=== PATIENT | female | born 1940 | race Caucasian/White ===

== ENCOUNTER → 2019-01-16 | Outpatient (CLI) | payer MEDICARE | END | disposition home or self-care (01) | LOC: RADPETMAIN 10:34 | PROVIDERS: ATTEND Family Medicine | DX: Z53.9 Procedure and treatment not carried out, unspecified reason (principal) ==

== ENCOUNTER → 2019-02-13 | Outpatient (CLI) | payer MEDICARE ==
--- NOTE | 2019-02-15 07:47 | PE ---
EXAMINATION TYPE: PET CT fusion skull to thigh DATE OF EXAM: 02/13/2019 COMPARISON: Outside chest CT December 17, 2018. HISTORY: Solitary pulmonary nodule. TECHNIQUE: Following the intravenous administration of 13.30 mCi of F-18 FDG, whole body images are performed from the skull base to the midthigh. Images are reviewed on the computer in the coronal, a xial, and sagittal planes. Reconstructed rotating images are created on independent workstation and reviewed on the computer. A noncontrast CT is performed in conjunction with the PET scan. SCAN: Initial Scan FINDINGS: SKULL BASE AND NECK: No areas of suspicious hypermetabolic uptake. CHEST, MEDIASTINUM, AND HILAR REGION: Background mild underlying emphysematous change is redemonstrat ed. There is marked interval improvement in masslike consolidation left lung base on axial image 125. There is minimal residual ametabolic linear consolidation remaining present measuring roughly 3.0 x 0.4 cm consistent with resolving infiltrate and/or atelectasis. No suspicious areas of abnormal hyper metabolic uptake in the thorax are present. ABDOMEN AND PELVIS: No areas of suspicious hypermetabolic uptake. OSSEOUS STRUCTURES: No areas of suspicious hypermetabolic uptake. OTHER CT: There is moderate to severe three-vessel coronary artery calcification which is noted marke d underlying coronary artery disease. Moderate to severe calcified plaque bilateral carotid bulb leve l is noted. Some cortical thinning of both kidneys with a few scattered simple appearing cysts are present. Findi ngs are consistent with product of chronic medical renal disease. There is moderate to severe calcified plaque of the abdominal aorta extending into iliac branch vesse ls. Uterus is surgically absent markedly atrophic. Scattered pelvic phleboliths are present. There is facet arthropathy in the lower lumbar spine. Multilevel spurring in the thoracolumbar spine. IMPRESSION: No suspicious hypermetabolic uptake to suggest malignancy. Near-complete resolution of po sterior left basilar consolidation and/or atelectasis.
== END | disposition home or self-care (01) ==
LOC: RADPETMAIN 11:54
PROVIDERS: ATTEND Family Medicine
DX: R91.8 Other nonspecific abnormal finding of lung field (principal)
CPT/HCPCS: 78815; A9552

== ENCOUNTER → 2023-02-06 | Outpatient (CLI) | payer MEDICARE ==
--- NOTE | 2023-02-06 17:00 | CT ---
EXAMINATION TYPE: CT chest wo con DATE OF EXAM: 02/06/2023 COMPARISON: Head CT 12/27/2018 HISTORY: SOB/Cough. CT DLP: [address] of the chest was performed with lung and mediastinal window settings submitted. The la ck of contrast limits evaluation of the vascular, mediastinal and parenchymal structures including th e upper abdomen. LUNGS: Left basilar density seen on prior study has resolved. The lungs are clear and free of infiltr ate. No atelectasis. No pulmonary nodule or mass is detected. No pleural effusion. No CT evidence of interstitial lung disease. MEDIASTINUM/CHANDLER: Thoracic aorta is of normal caliber with limited evaluation given lack of contrast . The heart is not enlarged. No evidence for mediastinal mass. No lymph nodes greater than 1cm. UPPER ABDOMEN: No significant abnormality is seen. OTHER: No significant other abnormality. IMPRESSION: 1.
== END | disposition home or self-care (01) ==
LOC: RADCTMAIN 16:02
PROVIDERS: ATTEND Family Medicine
DX: R06.02 Shortness of breath (principal); R05.9 Cough, unspecified
CPT/HCPCS: 71250

== ENCOUNTER 2025-04-28 18:37 | Emergency (ER) | payer MEDICARE ==
[2025-04-28 18:46] VITALS: RESP 18; TEMP 98
[2025-04-28] MEDS: SODIUM CHLORIDE 0.9% 1,000 ML IV ONE (19:03)
[2025-04-28 19:05] LABS: Basophils # (A) 0.02 10*3/uL (0.00-0.10); Basophils % (A) 0.2 %; Eosinophils # (A) 0.00 10*3/uL (0.04-0.35); Eosinophils % (A) 0.0 %; HCT 36.7 % (37.2-46.3); HGB 12.5 g/dL (12.0-15.0); Lymphocytes # (A) 0.61 10*3/uL (0.90-5.00); Lymphocytes % (A) 6.6 %; MCH 31.0 pg (27.0-32.0); MCHC 34.1 g/dL (32.0-37.0); MCV 91.1 fL (80.0-97.0); Monocytes # (A) 0.72 10*3/uL (0.20-1.00); Monocytes % (A) 7.8 %; Neutrophils # (A) 7.80 10*3/uL (1.80-7.70); Neutrophils % (A) 85.1 %; Platelet Count 234 10*3/uL (140-440); RBC 4.03 10*6/uL (4.10-5.20); RDW 14.6 % (11.5-14.5); WBC 9.18 10*3/uL (4.50-10.00)
--- NOTE | 2025-04-28 19:15 | ED ---
General Adult HPI - General Chief complaint: Fall Stated complaint: Fall Time Seen by Provider: 04/28/25 18:45 Source: patient, RN notes reviewed, old records reviewed Mode of arrival: EMS Limitations: no limitations - History of Present Illness Initial comments: This is an 84-year-old female who was using her walker on wheels to get a package she states she had a package on the cart portion when she lost her balance fell backwards onto her but was unable to get up. Patient states this happened about 20 hours ago. Patient denies hitting her head or neck. Patient denies a headache Patient denies numbness weakness patient denies any neck pain or scalp pain. Patient denies any back chest or abdomen pain. Patient denies any extremity pain. Patient has no complaints whatsoever she states the only reason she came in is because her kids wanted her to. - Related Data Home Medications Medication Instructions Recorded Confirmed Clopidogrel [Plavix] 75 mg PO DAILY 04/28/25 04/28/25 FLUoxetine HCL [PROzac] 20 mg PO DAILY 04/28/25 04/28/25 Furosemide [Lasix] 20 mg PO DAILY 04/28/25 04/28/25 Levothyroxine Sodium [Synthroid] 112 mcg PO DAILY 04/28/25 04/28/25 Losartan [Cozaar] 25 mg PO DAILY 04/28/25 04/28/25 Metoprolol Tartrate [Lopressor] 25 mg PO DAILY 04/28/25 04/28/25 Tirzepatide [Mounjaro] 5 mg SQ WE 04/28/25 04/28/25 diphenhydrAMINE [Benadryl] 25 mg PO QID PRN 04/28/25 04/28/25 metFORMIN HCL [Glucophage] 500 mg PO BID 04/28/25 04/28/25 Allergies Allergy/AdvReac Type Severity Reaction Status Date / Time No Known Allergies Allergy Verified 04/28/25 19:40 Review of Systems ROS Statement: Those systems with pertinent positive or pertinent negative responses have been documented in the HPI. ROS Other: All systems not noted in ROS Statement are negative. Past Medical History Past Medical History: Diabetes Mellitus, Hypertension, Pneumonia, Thyroid Disorder Additional Past Medical History / Comment(s): "bad veins in legs" Past Surgical History: Appendectomy, Hysterectomy Past Psychological History: No Psychological Hx Reported Smoking Status: Current every day smoker Past Alcohol Use History: None Reported Past Drug Use History: None Reported General Exam - General Exam Comments Initial Comments: GENERAL: Patient is well-developed and well-nourished. Patient is nontoxic and well- hydrated and is in no acute distress. ENT: Neck is soft and supple. No significant lymphadenopathy is noted. Oropharynx is clear. Moist mucous membranes. Neck has full range of motion without eliciting any pain. EYES: The sclera were anicteric and conjunctiva were pink and moist. Extraocular movements were intact and pupils were equal round and reactive to light. Eyelids were unremarkable. PULMONARY: Unlabored respirations. Good breath sounds bilaterally. No audible rales rhonchi or wheezing was noted. CARDIOVASCULAR: There is a regular rate and rhythm without any murmurs gallops or rubs. ABDOMEN: Soft and nontender with normal bowel sounds. SKIN: Skin is clear with no lesions or rashes and otherwise unremarkable. NEUROLOGIC: Patient is alert and oriented x3. Cranial nerves II through XII are grossly intact. Motor and sensory are also intact. Normal speech, volume and content. Symmetrical smile. MUSCULOSKELETAL: Normal extremities with adequate strength and full range of motion. LYMPHATICS: No significant lymphadenopathy is noted PSYCHIATRIC: Normal psychiatric evaluation. Limitations: no limitations Course Vital Signs 04/28/25 18:39 Temperature 98.0 F Pulse Rate 108 H Respiratory 18 Rate Blood Pressure 131/45 O2 Sat by Pulse 92 L Oximetry Medical Decision Making - Medical Decision Making Was pt. sent in by a medical professional or institution (DELMIS Mitchell, LICENSED OCCUPATIONAL THERAPY ASSISTANT, urgent care, hospital, or half-way...) When possible be specific @ -No Did you speak to anyone other than the patient for history (EMS, parent, family, police, friend...)? What history was obtained from this source @ -No Did you review nursing and triage notes (agree or disagree)? Why? @ -I reviewed and agree with nursing and triage notes Were old charts reviewed (outside hosp., previous admission, EMS record, old EKG, old radiological studies, urgent care reports/EKG's, half-way records)? Report findings @ -No old charts were reviewed Differential Diagnosis? @ -Differential Musculoskeletal Muscular strain, contusion, ligament sprain, fracture, arthritis, septic arthritis, bursitis, cellulitis, muscle spasm, nerve compression, DVT, arterial occlusion, herpes zoster, electrolyte abnormality, tumor.... This is not meant to be in all inclusive list EKG interpreted by me (3pts min.). @ -As above X-rays interpreted by me (1pt min.). @ -None done CT interpreted by me (1pt min.). @ -None done U/S interpreted by me (1pt. min.). @ -None done What testing was considered but not performed or refused? (CT, X-rays, U/S, labs)? Why? @ -None What meds were considered but not given or refused? Why? @ -None Did you discuss the management of the patient with other professionals (professionals i.e. Dr., PA, LICENSED OCCUPATIONAL THERAPY ASSISTANT, lab, RT, psych nurse, social media content specialist, bulk materials handling plant operator, teacher, anti air warfare operations officer, major case detective)? Give summary @ -No Was smoking cessation discussed for >3mins.? @ -No Was critical care preformed (if so, how long)? @ -No Were there social determinants of health that impacted care today? How? (Homelessness, low income, unemployed, alcoholism, drug addiction, transportation, low edu. Level, literacy, decrease access to med. care, senior living, rehab)? @ -No Was there de-escalation of care discussed even if they declined (Discuss DNR or withdrawal of care, Hospice)? DNR status @ -No What co-morbidities impacted this encounter? (DM, HTN, Smoking, COPD, CAD, Ca ncer, CVA, ARF, Chemo, Hep., AIDS, mental health diagnosis, sleep apnea, morbid obesity)? @ -None Was patient admitted / discharged? Hospital course, mention meds given and route, prescriptions, significant lab abnormalities, going to OR and other pertinent info. @ -Patient's lab work indicated that she was somewhat dehydrated. Patient received a liter of normal saline in the emergency department. Patient remained asymptomatic throughout her stay. Patient's magnesium came back 1.5 to give the patient a tablet of magnesium oxide of 400 mg. Undiagnosed new problem with uncertain prognosis? @ -No Drug Therapy requiring intensive monitoring for toxicity (Heparin, Nitro, Insulin, Cardizem)? @ -No Were any procedures done? @ -No Diagnosis/symptom? @ -Fall Acute, or Chronic, or Acute on Chronic? @ -Acute Uncomplicated (without systemic symptoms) or Complicated (systemic symptoms)? @ -Uncomplicated Side effects of treatment? @ -No Exacerbation, Progression, or Severe Exacerbation? @ -No Poses a threat to life or bodily function? How? (Chest pain, [place], MA, pneumonia, PE, COPD, DKA, ARF, appy, cholecystitis, CVA, Diverticulitis, Homicidal, Suicidal, threat to staff... and all critical care pts) @ -No Diagnosis/symptom? @ -Hypomagnesemia Acute, or Chronic, or Acute on Chronic? @ -Acute Uncomplicated (without systemic symptoms) or Complicated (systemic symptoms)? @ -Uncomplicated Side effects of treatment? @ -None Exacerbation, Progression, or Severe Exacerbation] @ -No Poses a threat to life or bodily function? @ -No Diagnosis/symptom? @ -Dehydration Acute, or Chronic, or Acute on Chronic? @ -Acute Uncomplicated (without systemic symptoms) or Complicated (systemic symptoms)? @ -On comp Side effects of treatment? @ -None Exacerbation, Progression, or Severe Exacerbation] @ -No Poses a threat to life or bodily function? @ -No - Lab Data Result diagrams: 04/28/25 18:59 04/28/25 18:59 Lab Results 04/28/25 04/28/25 Range/Units 18:59 18:59 WBC 9.18 (4.50-10.00) 10*3/uL RBC 4.03 L (4.10-5.20) 10*6/uL Hgb 12.5 (12.0-15.0) g/dL Hct 36.7 L (37.2-46.3) % MCV 91.1 (80.0-97.0) fL MCH 31.0 (27.0-32.0) pg MCHC 34.1 (32.0-37.0) g/dL Plt Count 234 (140-440) 10*3/uL MPV 9.8 (9.5-12.2) fL Immature Gran % (Auto) 0.3 % Neutrophils % 85.1 % Lymphocytes % 6.6 % Monocytes % 7.8 % Eosinophils % 0.0 % Basophils % 0.2 % Immature Gran # 0.03 (0.00-0.04) 10*3/uL Neutrophils # 7.80 H (1.80-7.70) 10*3/uL Lymphocytes # 0.61 L (0.90-5.00) 10*3/uL Monocytes # 0.72 (0.20-1.00) 10*3/uL Eosinophils # 0.00 L (0.04-0.35) 10*3/uL Basophils # 0.02 (0.00-0.10) 10*3/uL Sodium 139 (137-145) mmol/L Potassium 3.9 (3.5-5.1) mmol/L Chloride 97 L (98-107) mmol/L Carbon Dioxide 28 (22-30) mmol/L Anion Gap 14 mmol/L BUN 31 H (7-17) mg/dL Creatinine 0.75 (0.52-1.04) mg/dL Est GFR (CKD-EPI)AfAm 84 (>60 ml/min/1.73 sqM) Est GFR (CKD-EPI)NonAf 73 (>60 ml/min/1.73 sqM) Glucose 145 H (74-99) mg/dL Calcium 10.0 (8.4-10.2) mg/dL Magnesium 1.5 L (1.6-2.3) mg/dL Total Bilirubin 0.7 (0.2-1.3) mg/dL AST 35 (14-36) U/L ALT 16 (4-34) U/L Alkaline Phosphatase 72 (38-126) U/L Creatine Kinase 159 H (30-135) U/L Total Protein 6.5 (6.3-8.2) g/dL Albumin 3.9 (3.5-5.0) g/dL Disposition Clinical Impression: Fall, Dehydration, Hypomagnesemia Disposition: HOME SELF-CARE Instructions (If sedation given, give patient instructions): Fall Prevention for Older Adults (ED) Is patient prescribed a controlled substance at d/c from ED?: No Referrals: Tanna Olmstead DO [Primary Care Provider] - 1-2 days Time of Disposition: 20:07
[2025-04-28 19:17] LABS: ALT 16 U/L (4-34); AST 35 U/L (14-36); African American GFR (CKD) 84 (>60 ml/min/1.73 sqM); Albumin 3.9 g/dL (3.5-5.0); Alkaline Phosphatase 72 U/L (38-126); Anion Gap 14 mmol/L; Blood Urea Nitrogen 31 mg/dL (7-17); Calcium 10.0 mg/dL (8.4-10.2); Carbon Dioxide 28 mmol/L (22-30); Chloride 97 mmol/L (98-107); Creatine Kinase 159 U/L (30-135); Glucose 145 mg/dL (74-99); Magnesium 1.5 mg/dL (1.6-2.3); Non-African American GFR(CKD) 73 (>60 ml/min/1.73 sqM); Potassium 3.9 mmol/L (3.5-5.1); Sodium 139 mmol/L (137-145); Total Protein 6.5 g/dL (6.3-8.2)
[2025-04-28] MEDS: MAGNESIUM OXIDE 400 MG TAB PO STA (20:17)
[2025-04-28 20:37] VITALS: BP 110/58; PULSE 111
== END 2025-04-28 20:37 | disposition home or self-care (01) ==
LOC: EC 18:37
DX: E86.0 Dehydration (principal); E83.42 Hypomagnesemia; F17.200 Nicotine dependence, unspecified, uncomplicated; W01.0XXA Fall on same level from slipping, tripping and stumbling without subsequent striking against object, initial encounter; Y93.01 Activity, walking, marching and hiking
CPT/HCPCS: 36415; 80053; 82550; 83735; 85025; 93005; 96360; 96361; 99284